=== PATIENT | male | born 1990 | race Two or more races ===

== ENCOUNTER 2024-10-11 08:38 | Emergency (ER) | payer MEDICAID ==
[~2024-10-11] VITALS: Ht 167.6 cm; Wt 104.0 kg
[2024-10-11 08:54] VITALS: BP 134/86; TEMP 98.8; O2SAT 99
[2024-10-11 09:20] VITALS: PULSE 76; RESP 18; O2SAT 99
[2024-10-11] MEDS ORDERED: KETOROLAC 30MG/ML VIAL IV STA (10:12)
[2024-10-11] MEDS ORDERED: SODIUM CHLORIDE 0.9% 1,000 ML IV ONE (10:15)
[2024-10-11 10:35] LABS: CHLORIDE 107 mEq/L (98-107); POTASSIUM 4.5 mEq/L (3.5-5.1); SODIUM 140 mEq/L (136-145)
[2024-10-11 10:36] LABS: BASOPHILS % 0.7 % (0.0-2.0); CALCIUM 9.7 mg/dL (8.7-10.4); CARBON DIOXIDE 26 mEq/L (21-32); HEMOGLOBIN. 14.8 g/dL (14.0-18.0); LYMPHOCYTES % 30.4 % (20.0-50.0); MEAN CORPUSCULAR HEMOGLOBIN 30.1 pg (28.0-32.0); MEAN CORPUSCULAR HGB CONC 33.6 g/dL (31.0-37.0); MEAN CORPUSCULAR VOLUME 89.5 fL (80.0-94.0); MEAN PLATELET VOLUME 9.5 fl (7.4-10.4); MONOCYTES % 6.2 % (2.0-8.0); NEUTROPHILS % 56.7 % (40.0-76.0); PLATELET 228 x1000/uL (130-400); RED BLOOD CELL COUNT 4.92 mill/uL (4.7-6.1); RED CELL DISTRIBUTION WIDTH 13.2 % (11.6-14.6); WHITE BLOOD COUNT 6.8 x1000/uL (4.5-11.0)
[2024-10-11 10:41] LABS: GLUCOSE 90 mg/dL (70-105); UREA NITROGEN BLOOD 12 mg/dL (9-23)
[2024-10-11] MEDS ORDERED: ONDA4TAB50 MT (13:05)
[2024-10-11] MEDS ORDERED: IBUP-2029 MT (13:05)
== END 2024-10-11 14:01 | disposition home or self-care (01) ==
LOC: ER 08:46
DX: R51.9 Headache, unspecified (principal); R10.11 Right upper quadrant pain; I10 Essential (primary) hypertension; Z98.890 Other specified postprocedural states
CPT/HCPCS: 80048; 83605; 83690; 85025; 36415; 70450; 74176; 76705; 99284; J7030; Z7610